=== PATIENT | male | born 1995 | race Two or more races ===

== ENCOUNTER 2024-12-06 08:20 | Emergency (ER) | payer MEDICAID, SELFPAY ==
[2024-12-06 08:20] VITALS: BMI 45.6
[2024-12-06 08:26] VITALS: BP 155/97; PULSE 94; RESP 18; TEMP 36.4; O2SAT 97
--- NOTE | 2024-12-06 08:40 | XR_ITS ---
Examination: Thoracic spine 3 views Technique: AP lateral coned lateral upper dorsal spine 3 views Date and time: December 06, 2024, 0939 hrs. Indications: Chronic back pain, worse today. Findings: Adequate alignment thoracic vertebral bodies. Mild diffuse thoracic disc narrowing. No thoracic fracture Impression: Mild diffuse thoracic disc narrowing
--- NOTE | 2024-12-06 08:44 | EDNOTE_ITS ---
<Statement entered by Kendra Sanchez MD - 12/21/24 06:34> As co-signing physician, I was present and available for consult prn. I concur with the plan and care as documented by the midlevel provider. ED Back Injury Pain RME/HPI General Chief Complaint: Back Pain/Injury Stated Complaint: BILATERAL FLANK PAIN Time Seen by Provider: 12/06/24 08:23 Source: patient Arrival date/time: 12/06/24 08:20 28-year-old male with no known medical history presents to the emergency room with a chief complaint of lumbar back pain x 1 month Mode of arrival: ambulatory Limitations: no limitations Related Data Previous Rx's ?Medication ?Instructions ?Recorded ibuprofen 800 mg tablet 800 mg PO TID PRN pain #30 t abs 09/10/19 ondansetron 4 mg disintegrating 4 mg PO Q12H #20 tabs 06/18/22 tablet prochlorperazine 25 mg rectal 25 mg VT Q12H #12 ea suppository (Compazine) prochlorperazine maleate 10 mg 10 mg PO BID PRN nausea and 03/05/23 tablet (Compazine) vomiting #20 tabs sucralfate 1 gram tablet (Carafate) 1 g PO BID #20 tab s 03/05/23 arm brace (Wrist Support #2 ea 05/04/23 Large-XLarge) Allergies Allergy/AdvReac Type Severity Reaction Status Date / Time No Known Allergies Allergy Verified 12/06/24 08:22 Review of Systems Review of Systems Systems Reviewed: All systems reviewed, normal except as documented Constitutional Constitutional: Reports system reviewed and no additional complaints, except as documented, Denies fatigue, Denies fever(s), Denies headache(s) and Denies weakness Eyes Eyes: Reports system reviewed and no additional complaints, except as documented, Denies blurry vision and Denies change in vision ENT Ears, Nose, Mouth, and Throat: Reports system reviewed and no additional complaints, except as documented, Denies otalgia, Denies headache(s), Denies nasal congestion, Denies throat swelling and Denies vertigo Cardiovascular Cardiovascular: Reports system reviewed and no additional complaints, except as documented, Denies chest pain, Denies dyspnea and Denies dyspnea on exertion Respiratory Respiratory: Reports system reviewed and no additional complaints, except as documented, Denies chest congestion, Denies cough, Denies dyspnea, Denies dyspnea on exertion and Denies wheezing Gastrointestinal Gastrointestinal: Reports system reviewed and no additional complaints, except as documented, Denies abdominal pain, Denies cramping, Denies nausea and Denies vomiting Genitourinary Genitourinary: Reports system reviewed and no additional complaints, except as documented, Denies dysuria and Denies hematuria Musculoskeletal Musculoskeletal: Reports system reviewed and no additional complaints, except as documented and Reports back pain Integumentary/Breasts Skin/Breast: Reports system reviewed and no additional complaints, except as documented and Denies wounds Neurologic Neurologic: Reports system reviewed and no additional complaints, except as documented, Denies confusion, Denies headache(s), Denies lack of coordination, Denies vertigo and Denies weakness Psychiatric Psychiatric: Reports system reviewed and no additional complaints, except as documented, Denies anxiety, Denies confusion, Denies depression, Denies paranoia, Denies suicidal ideation and Denies tactile hallucinations Endocrine Endocrine: Reports system reviewed and no additional complaints, except as documented and Denies fatigue Hematologic/Lymphatic Hematologic/Lymphatic: Reports system reviewed and no additional complaints, except as documented and Denies lymphadenopathy Allergic/Immunologic Allergic/Immunologic: Reports system reviewed and no additional complaints, except as documented, Denies throat swelling, Denies urticaria and Denies wheezing ED Exam General Limitations: Present no limitations General appearance: Present alert and in no apparent distress Head Head exam: Present atraumatic Eye Eye exam: Present normal appearance, PERRL and EOMI ENT ENT exam: Present normal exam, normal oropharynx and mucous membranes moist Neck Neck exam: Present normal inspection, full ROM and trachea midline Chest Chest inspection: Present normal inspection and symmetric chest wall rise Respiratory Respiratory exam: Present normal lung sounds bilaterally Cardiovascular Cardiovascular exam: Present regular rate, normal rhythm and normal heart sounds Abdominal Exam Abdominal exam: Present soft and normal bowel sounds Extremities Exam Extremities exam: Present normal inspection and full ROM Back Exam Back exam: Present normal inspection, full ROM, tenderness and vertebral tenderness Neurological Exam Neurological exam: Present alert, oriented X3 and CN II-XII intact Psychiatric Psychiatric exam: Present normal affect and normal mood Skin Skin exam: Present warm, dry, intact and normal color Course Quality Measures none Orders Category Date Time Status XR thoracic spine 3V Stat Exams 12/06/24 08:40 Completed Ketorolac Inj [Toradol Inj] Med 12/06/24 08:40 Discontinued 60 mg IM X1 ONE Vital Signs Vital signs: Vital Signs Temperature 97.6 F 12/06/24 08:26 Pulse Rate 94 12/06/24 08:26 Respiratory Rate 18 12/06/24 08:26 Blood Pressure 155/97 H 12/06/24 08:26 Pulse Oximetry (%) 97 12/06/24 08:26 Oxygen Delivery Method Room Air 12/06/24 08:26 Back Pain / Injury MDM Narrative MDM Narrative:: 28-year-old male with no known medical history presents to the emergency room with a chief complaint of thoracic back pain x 1 month Patient is hemodynamically stable and in no apparent distress Physical examination shows tenderness and pain to the patient's lumbar area of her spine X-ray was completed and shows mild diffuse thoracic disc narrowing Patient was educated to follow-up with his primary care provider and return to the emergency room for any evidence of worsening signs or symptoms Patient data External records reviewed:: [facility] previous records Clinical information provided by:: patient Social determinants that could affect healthcare access:: none Patient has the following chronic illnesses:: No chronic illness How is presenting disease/condition affected by chronic disease/condition?: no chronic disease Evaluation data The following diagnostics were reviewed and interpreted by me:: lab results and radiology exam(s) Lab and/or radiology exams considered but not ordered:: Labs and radiology exams considered and ordered Interpretation Summary: Thoracic [id number]: Adequate alignment thoracic vertebral bodies. Mild diffuse thoracic disc narrowing. No thoracic fracture Impression: Mild diffuse thoracic disc narrowing Medications / Prescriptions Medications or Prescriptions considered but not ordered:: Medication given Medication administrations:: Medication Administration History Discontinued Medications Ketorolac Tromethamine (Ketorolac Inj 60 Mg/2 Ml Vial) 60 mg IM X1 ONE Stop: 12/06/24 08:41 Last Admin: 12/06/24 08:55 Dose: 60 mg Documented By: DB Medication given Consultations Consultation(s) initiated? (list below): No Diagnosis Differential diagnosis back pain/injury: strain of lumbar region, thoracic back pain and discitis Most likely diagnosis given after review of the tests above:: Thoracic back pain Admission Indicated Admission indicated?: not indicated Admission Request Was there a request for admission?: No Disposition Plan Disposition Plan: Discharge Discharge Attestation Discharge Attestation: The patient and all family members were given an opportunity to ask questions and understood the discharge instructions. Discharge instructions specifically effects, indications for sooner follow up or return to the emergency department, and the expected course of current diagnosis. Patient condition: Stable Discharge Plan Plan Patient Disposition: HOME (Self Care) Discharge Disposition comment: Stable Prescriptions/Referrals Prescriptions/Med Rec: No Action ibuprofen 800 mg tablet 800 mg PO TID PRN (Reason: pain) Qty: 30 0RF prochlorperazine [Compazine] 25 mg suppository 25 mg VT Q12H Qty: 12 0RF ondansetron 4 mg tablet,disintegrating 4 mg PO Q12H Qty: 20 0RF sucralfate [Carafate] 1 gram tablet 1 g PO BID Qty: 20 0RF prochlorperazine maleate [Compazine] 10 mg tablet 10 mg PO BID PRN (Reason: nausea and vomiting) Qty: 20 0RF (DME) Wrist Support Large-XLarge Misc See Rx Instructions .Route Qty: 2 0RF Rx Instructions: As directed Referrals: No Primary/Family,Physician [Primary Care Provider] - In 1 week Problem List Clinical Impression: Thoracic back pain Patient/Caregiver Discharge Instructions Additional Instructions: Please follow-up with your primary care provider in the next 24 to 48 hours X-ray of your back was completed and was negative for any acute findings For any evidence of worsening signs or symptoms return to the emergency room im mediately Print Language: [place] Stand Alone Forms: [facility] Award Info., Patient Portal Info Letter PA/BRETT Supervising Physician PA/BRETT Supervising Physician: Dr. SANCHEZ
[2024-12-06] MEDS: KETOROLAC INJ 60 MG/2 ML VIAL IM (08:55)
== END 2024-12-06 11:32 | disposition home or self-care (01) ==
PROVIDERS: Emergency Provider Emergency Medicine
DX: M54.6 Pain in thoracic spine (principal)
CPT/HCPCS: 72072; 96372; 99283; J1885